=== PATIENT | male | born 1950 | race Hispanic/Latino ===

== ENCOUNTER 2021-10-26 20:31 | Observation (INO) | payer MEDICARE, OTHER ==
[~2021-10-26] VITALS: Ht 167.6 cm; Wt 76.9 kg
[2021-10-26 21:58] LABS: BASOPHILS % (AUTO) 0.6 % (0.0-5.0); HEMATOCRIT 43.5 % (42-54); LYMPHOCYTES % (AUTO) 21.3 % (21.0-51.0); MEAN CORPUSCULAR HEMOGLOBIN 31.9 pg (27.0-33.0); MEAN CORPUSCULAR HGB CONC 34.9 g/dL (32.0-36.0); MEAN CORPUSCULAR VOLUME 91.2 fL (79-99); MONOCYTES % (AUTO) 13.9 % (3.0-13.0); NEUTROPHILS % (AUTO) 61.8 % (40.0-77.0); PLATELET COUNT (AUTO) 261 K/uL (130-400); RED BLOOD CELL COUNT(AUTO) 4.77 MIL/uL (4.50-6.20); RED CELL DISTRIBUTION WIDTH 11.7 % (11.0-15.5); WHITE BLOOD COUNT (AUTO) 10.2 K/uL (4.8-10.8)
[2021-10-26 21:59] LABS: APPEARANCE,URINE Clear (CLEAR); BILIRUBIN,URINE Negative (NEGATIVE); COLOR,URINE Yellow (YELLOW); GLUCOSE, URINE (UA) Negative (NEGATIVE); KETONES,URINE 15 mg/dL (NEGATIVE); LEUKOCYTE ESTERASE ,URINE Negative (NEGATIVE); NITRATE,URINE Negative (NEGATIVE); OCCULT BLOOD,URINE Negative (NEGATIVE); PH,URINE 5.5 (5.0-8.0); PROTEIN,URINE Trace mg/dL (NEGATIVE)
[2021-10-26 22:05] LABS: BACTERIA,URINE Few /HPF (None Seen); RBC,URINE 0-1 /HPF (0-1); SQUAMOUS EPITHELIAL CELL,UR Rare /HPF (0-2); WBC,URINE 0-1 /HPF (0-1)
[2021-10-26 22:06] LABS: MUCUS,URINE Moderate LPF (None Seen)
[2021-10-26 22:14] LABS: POTASSIUM 4.5 mmol/L (3.5-5.1)
[2021-10-26 22:18] LABS: ALBUMIN 3.9 g/dL (3.5-5.0); BILIRUBIN,TOTAL 0.6 mg/dL (0.2-1.0); TOTAL PROTEIN, SERUM 7.8 g/dL (6.0-8.3)
[2021-10-26] MEDS ORDERED: 0.9%NACL 1000ML 1,000 ML IV ONE (22:30)
[2021-10-26] MEDS ORDERED: KETOROLAC 15MG/ML VIAL (15MG/ML) IV ONE (22:30)
[2021-10-26] MEDS ORDERED: ACETAMINOPHEN 325 MG TAB PO PRN ×2 (23:00)
[2021-10-26] MEDS ORDERED: LACTULOSE 20 GM/30 ML UDCUP PO PRN (23:00)
[2021-10-26] MEDS ORDERED: ONDANSETRON 4MG INJ IV PRN (23:00)
[2021-10-26] MEDS: 0.9%NACL 1000ML 1,000 ML IV SCH (23:44)
[2021-10-27] MEDS ORDERED: MORPHINE 2 MG SYG IVP PRN
[2021-10-27] MEDS: FAMOTIDINE 20MG VIAL IV SCH ×2 (07:37→22:55)
[2021-10-27] MEDS ORDERED: PRAV20TA4 PO (09:14)
[2021-10-27] MEDS ORDERED: MULT-1203 PO (10:07)
[2021-10-27] MEDS ORDERED: CA C1TAB74 PO (10:07)
[2021-10-27] MEDS ORDERED: ASCO500T20 PO (10:07)
[2021-10-27] MEDS: ZOSYN 3.375GM +NS 50ML IV SCH ×2 (12:06→18:37)
[2021-10-27 16:05] VITALS: BP 141/76
[2021-10-27] MEDS: 0.9%NACL 1000ML 1,000 ML IV SCH ×2 (18:37→19:00)
[2021-10-27 19:20] VITALS: BP 126/69
[2021-10-27 23:26] VITALS: BP 131/78
[2021-10-28] MEDS: ZOSYN 3.375GM +NS 50ML IV SCH ×2 (02:30→10:41)
[2021-10-28 03:31] VITALS: BP 117/59
[2021-10-28] MEDS: 0.9%NACL 1000ML 1,000 ML IV SCH (05:00)
[2021-10-28 07:03] LABS: BASOPHILS % (AUTO) 0.7 % (0.0-5.0); EOSINOPHILS % (AUTO) 3.6 % (0.0-8.0); LYMPHOCYTES % (AUTO) 32.3 % (21.0-51.0); MEAN CORPUSCULAR HEMOGLOBIN 31.4 pg (27.0-33.0); MEAN CORPUSCULAR HGB CONC 34.9 g/dL (32.0-36.0); MONOCYTES % (AUTO) 12.4 % (3.0-13.0); NEUTROPHILS % (AUTO) 50.3 % (40.0-77.0); PLATELET COUNT (AUTO) 234 K/uL (130-400); RED BLOOD CELL COUNT(AUTO) 4.11 MIL/uL (4.50-6.20); RED CELL DISTRIBUTION WIDTH 11.3 % (11.0-15.5); WHITE BLOOD COUNT (AUTO) 5.9 K/uL (4.8-10.8)
[2021-10-28 07:32] LABS: ALBUMIN 3.1 g/dL (3.5-5.0); BILIRUBIN,TOTAL 0.8 mg/dL (0.2-1.0); POTASSIUM 3.5 mmol/L (3.5-5.1); TOTAL PROTEIN, SERUM 6.2 g/dL (6.0-8.3)
[2021-10-28] MEDS ORDERED: DIATR MEGLU/DIATRIZOATE SODIUM 30 ML BOTTLE ONE (07:41)
[2021-10-28 08:00] VITALS: BP 122/75
[2021-10-28] MEDS: FAMOTIDINE 20MG VIAL IV SCH (10:41)
[2021-10-28] MEDS ORDERED: LIDOCAINE HCL-MPF 1% 2ML VIAL IV PRN (12:30)
[2021-10-28] MEDS ORDERED: POTASSIUM CHLORIDE 20MEQ/100ML 100 ML IV PRN (12:30)
[2021-10-28] MEDS ORDERED: KCL 20 MEQ ERTAB PO ONE (13:00)
[2021-10-28 16:36] VITALS: BP 145/79
== END 2021-10-28 18:20 | disposition home or self-care (01) ==
LOC: EDH 20:31 → EDHIP 22:59 → 3CH 10-27 12:49
PROVIDERS: ADMIT Internal Medicine; ATTEND Internal Medicine
DX: K56.609 Unspecified intestinal obstruction, unspecified as to partial versus complete obstruction (principal); R10.10 Upper abdominal pain, unspecified; K56.7 Ileus, unspecified; E78.5 Hyperlipidemia, unspecified; E86.0 Dehydration; K52.9 Noninfective gastroenteritis and colitis, unspecified; Z90.79 Acquired absence of other genital organ(s); Z79.899 Other long term (current) drug therapy; Z98.890 Other specified postprocedural states
CPT/HCPCS: 36415 ×3; 74176 ×2; 80053 ×2; 81001; 82550; 83690; 83735; 84484; 85025 ×2; 87046; 87177; 87329; 93005; 96361 ×2; 96365; 96366 ×2; 96375 ×2; 96376 ×2; 99285; G0378 ×43; J1885; J2543 ×4; J3490 ×3; J7030 ×2; Q9963; 96374